=== PATIENT | male | born 1985 | race Caucasian/White ===

== ENCOUNTER 2018-05-11 20:43 | Emergency (ER) | payer MEDICARE, MEDICAID ==
[~2018-05-11] VITALS: Ht 193 cm; Wt 121.4 kg
[2018-05-11] MEDS ORDERED: LORazepam 0.5MG TABLET ONE (21:26)
[2018-05-11] MEDS ORDERED: ONDANSETRON ODT 4 MG ONE (21:26)
[2018-05-11] MEDS ORDERED: ONDANSETRON ODT 4 MG PO ONE (21:30)
[2018-05-11] MEDS ORDERED: LORazepam 0.5MG TABLET PO ONE (21:30)
[2018-05-11 21:40] VITALS: BP 122/70
[2018-05-11 21:47] LABS: TROPONIN I < 0.015 ng/mL (0.000-0.045)
== END 2018-05-11 22:01 | disposition home or self-care (01) ==
LOC: ED 21:58
DX: R07.89 Other chest pain (principal); F15.10 Other stimulant abuse, uncomplicated; F41.9 Anxiety disorder, unspecified; F12.10 Cannabis abuse, uncomplicated
CPT/HCPCS: 36415; 71046; 84484; 93005; 99285; Q0162

== ENCOUNTER 2018-07-04 10:43 | Emergency (ER) | payer MEDICARE, MEDICAID ==
[~2018-07-04] VITALS: Ht 190.5 cm; Wt 119.1 kg
[2018-07-04 11:27] VITALS: BP 149/92
[2018-07-04 12:21] LABS: BASOPHILS # (AUTO) 0.07 x10^3/uL (0-0.1); BASOPHILS % (AUTO) 1 % (0-1); EOSINOPHILS # (AUTO) 0.22 x10^3/uL (0-0.4); EOSINOPHILS % (AUTO) 3 % (1-7); LYMPHOCYTES # (AUTO) 2.33 x10^3/uL (1-3.4); LYMPHOCYTES % (AUTO) 27 % (22-44); MD NO; MEAN CORPUSCULAR HEMOGLOBIN 31.4 pg (27.5-34.5); MEAN CORPUSCULAR HGB CONC 34.6 g/dL (33.2-36.2); MEAN CORPUSCULAR VOLUME 90.9 fL (81-97); MEAN PLATELET VOLUME 9.9 fL (7.4-10.4); MONOCYTES # (AUTO) 0.56 x10^3/uL (0.2-0.8); MONOCYTES % (AUTO) 6 % (2-9); NEUTROPHILS # (AUTO) 5.59 x10^3/uL (1.8-6.8); NEUTROPHILS % (AUTO) 64 % (42-75); PLATELET COUNT 140 x10^3/uL (130-400); RED BLOOD COUNT 5.35 x10^6/uL (4.38-5.82); RED CELL DISTRIBUTION WIDTH 12.5 % (9.4-14.8)
[2018-07-04 12:32] LABS: ALBUMIN 3.9 g/dL (3.4-5.0); ANION GAP 7 mmol/L (5-15); CHLORIDE 107 mmol/L (98-107); CREATININE 0.75 mg/dL (0.7-1.3)
[2018-07-04 12:35] LABS: TROPONIN I < 0.015 ng/mL (0.000-0.045)
== END 2018-07-04 13:32 | disposition home or self-care (01) ==
LOC: ED 12:22
DX: F41.1 Generalized anxiety disorder (principal)
CPT/HCPCS: 36415; 80048; 82040; 84484; 85025; 93005; 99285